=== PATIENT | male | born 1955 | race Hispanic/Latino ===

== ENCOUNTER → 2017-08-16 09:30 | Outpatient (CLI) | payer OTHER, SELFPAY ==
--- NOTE | 2017-08-16 | DI.US.S_ITS ---
PROCEDURE: US SCROTUM INDICATIONS: HYDROCELE TECHNIQUE: Real-time scanning was performed of the scrotum and testicles, with image documentation. Color and pulse Doppler interrogation was performed of both testicles. COMPARISON: [facility], US, TESTICLE IMAGING, 07/31/2011, 7:28. Formerly [facility], US, TESTICULAR & SCROTAL SONOGRAM, 08/02/2012, 15:13. FINDINGS: Right: Testicle is normal in size at 2.4 x 2.6 x 4.5 cm, and homogenous in echotexture. Small 5 mm x 5 mm x 3 mm testicular cyst anterior margin is unchanged. Epididymis is normal in overall size and morphology. No hydrocele or varicoceles. Overlying scrotal skin is normal in thickness. Left: Testicle is normal in size at 2.3 x 2.8 x 3.3 cm, and homogeneous in echotexture. Epididymis is normal in overall size and morphology. The loculated hydrocele measures 5.8 x 6.6 x 7.4 cm compared to 2.3 x 6.7 x 6.9 cm on last exam and 2.9 x 4.5 x 5.7 cm prior to that, no varicoceles. Overlying scrotal skin is normal in thickness. Doppler: Color and pulse Doppler demonstrate normal and symmetric arterial flow in both testicles. IMPRESSION: 1. Stable 5 mm right testicular cyst. 2. Loculated left hydrocele is slowly increasing in size. 3. Epididymal cysts on previous exams no longer evident. Dictated by: Salas Hudson M.D. on 08/16/2017 at 10:15 Approved by: Salas Hudson M.D. on 08/16/2017 at 10:22
== END ==
PROVIDERS: Visit Provider Physician Assistant
DX: N43.3 Hydrocele, unspecified (principal); N44.2 Benign cyst of testis
CPT/HCPCS: 76870

== ENCOUNTER → 2019-09-27 14:03 | Outpatient (CLI) | payer OTHER, SELFPAY ==
[2019-09-29 20:42] LABS: COVID19 Sendout Not Detected (Not Detect)
== END ==
PROVIDERS: PCP Neuromusculoskeletal Medicine & OMM; Visit Provider Physician Assistant
DX: Z11.59 Encounter for screening for other viral diseases (principal)
CPT/HCPCS: 87635

== ENCOUNTER 2019-09-30 08:35 | Day surgery (SDC) | payer OTHER, SELFPAY ==
[2019-09-30] VITALS (8 sets, daily range): BP systolic 121–149; BP diastolic 77–101; PULSE 91–109; RESP 11–20; TEMP 36.6–36.8; O2SAT 13–96; BMI 35.2
--- NOTE | 2019-09-30 | PATH_ITS ---
[facility] Accession Number: [id number] . 01 Material submitted: . PART A: colon - POLYP NEAR CECUM PART B: colon - 90 . 01 Clinical history: . SCREENING COLONOSCOPY . 02 Diagnosis: A. Colon Polyp, Near Cecum, Biopsy: Tubular adenoma. . B. Colon Polyp at 90 cm, Biopsy: Tubular adenoma. MRV 10/02/2019 1103 Local . 02 Electronically signed: . Emeterio Zhang MD, PhD, Pathologist NPI- [id number] . 01 Gross description: . Part A: POLYP NEAR CECUM: Received in formalin are multiple fragment(s) of felix, soft tissue measuring 1.0 x 0.7 x 0.4 cm in aggregate submitted entirely in 1 cassette(s) Part B: 90: Received in formalin is 1 fragment(s) of felix, soft tissue measuring 0.5 x 0.3 x 0.2 cm submitted entirely in 1 cassette(s) /QBJ 10/01/2019 0935 Local . 02 Pathologist provided ICD-10: D12.0, D12.6 . 02 CPT . 044999, 978570 Performed at: 01 [facility] [address] [facility], [place], [place] [id number] MD Dewayne John MD Phone: [phone] Performed at: 02 [facility] [address] [place], [place] [id number] MD Nidia Ashraf MD Phone: [phone]
--- NOTE | 2019-09-30 09:38 | PM.HP.1 ---
History of Present Illness History of Present Illness Date Patient Seen: 09/30/19 Time Patient Seen: 09:38 Chief complaint: SCREENING COLONOSCOPY Narrative: The patient is a gentleman his last exam was 5 years ago. He has a history of polyps. Patient History Medical History (Updated 09/30/19 @ 09:39 by Kian Coon MD) Arthritis (Acute) Diastasis recti (Acute) Graves disease (Acute) Sleep apnea (Acute) Family & Social History Family History (Updated 09/30/19 @ 09:40 by Kian Coon MD) Father Cancer Social History: household members spouse Tobacco & Substance use: Smoking Status Former smoker alcohol intake never Substance Use Type does not use Meds Home Medications and Allergies Home Medications Medication Instructions Recorded Confirmed Type levothyroxine [Synthroid] 150 mcg PO QDAY #0 tab 09/22/15 09/30/19 History triamterene-hydrochlorothiazid 1 cap PO QDAY #0 cap 09/22/15 09/30/19 History [Dyazide] ResMed AirCurve 10 BIPAP #1 ea 05/13/18 05/13/18 History cyclobenzaprine 10 mg PO TID PRN 09/30/19 09/30/19 History methotrexate sodium 12.5 mg PO BID 09/30/19 09/30/19 History sulfasalazine 1,000 mg PO BID 09/30/19 09/30/19 History Allergies Allergy/AdvReac Type Severity Reaction Status Date / Time No Known Drug Allergies Allergy Verified 09/30/19 08:54 Review of Systems Review of Systems Narrative: Patient is hypothyroid after radiation treatment for Graves disease ROS: Yes All systems reviewed with the patient and are negative except as otherwise documented Exam Vital Signs (past 8 hours): - 09/30/19 09:01 Temperature 97.9 F Pulse Rate 109 H Respiratory Rate 20 Blood Pressure 149/93 H Pulse Oximetry 96 Oxygen Delivery Method Room Air Narrative Exam Narrative: Pleasant cooperative patient no apparent distress. Lungs are clear to auscultation. No rales or rhonchi. Heart regular rate and rhythm no murmur gallop. Abdomen is soft nontender without mass. Obese. Diastasis recti No obvious hernias. Patient is alert and oriented x3. Assessment & Plan Assessment & Plan narrative: The patient for a screening colonoscopy. I have discussed the procedure with them. Risks of bleeding, perforation which would necessitate major operation, failure to find remove all lesions, the potential tattoo were all discussed. All questions were answered. They wished to proceed.
--- NOTE | 2019-09-30 09:42 | PM.PREOP ---
Pre-operative Note COVID-19 COVID-19 status: Negative Result date/Date tested (Pos, Neg/Pending): 09/27/19 Interval Note History & Physical reviewed/Exam performed by Physician: Yes Changes to H&P: No ASA Class (for procedural sedation): III
--- NOTE | 2019-09-30 10:13 | P.OP.ENDO_ITS ---
Operative Date/Time/Diagnoses Date of procedure: 09/30/19 Time of procedure: 10:14 Pre-op diagnosis: Screening examination. Personal history of polyps. Family history colon cancer. Last exam 5 years ago. Post-op diagnosis: same (Polyps) Procedure & Clinicians Study performed: Colonoscopy with hot snare polypectomy and cold biopsy Same procedure as scheduled: Yes Indications: Screening/patient with increase risk. Surgeon: Kian Coon Procedure Notes SCOAP/Timeout: Performed Procedure in detail: The patient was placed in the left lateral decubitus position and underwent IV sedation directed by the surgeon consisting of fentanyl and Versed. Digital exam was notable for enlargement of the prostate. There was a large external tag noted.. The scope was inserted and advanced through the rectum into the sigmoid, descending, transverse, and ascending colon. A small lesion was seen at about 90-100 cm which I attempted to biopsy. Unfortunately I loss side of it and could not relocated at this time.. The ce cum was reached identified by the ileocecal valve and the appendiceal opening. The ileocecal valve was successfully cannulated. The terminal ileum was normal in appearance. There was a large polyp in the region of the cecum which I snared with hot snare and removed completely. The base was cauterized. The scope was gradually brought out. One additional Polyp was found at 90 cm from the anal verge. I examined this region very carefully in this is the only lesion that I found. This was presumptively the lesion I saw going in.. The scope ultimately was retroflexed in the rectum. The appearance was remarkable for 1 large hemorrhoid. There were no ulcerations on it.. The scope was removed and the patient tolerated the procedure well. Prep was excellent. Scope withdrawal time: 10 minutes(12 total) Sedation minutes: 22 Findings: polyp Specimen(s): other (Polyps) Complications: none Post-procedure Recommendations: Colonscopy in 5 years Follow up: as needed Disposition: PACU
[2019-09-30] MEDS: fentaNYL 250 MCG/5 ML INJ IV (10:16)
[2019-09-30] MEDS: MIDAZOLAM 5 MG/5 ML VIAL IV (10:16)
== END 2019-09-30 11:12 | disposition home or self-care (01) ==
PROVIDERS: PCP Neuromusculoskeletal Medicine & OMM; Referring Provider Specialist; Visit Provider Specialist
PROC: 0DJD8ZZ Inspection of Lower Intestinal Tract, Via Natural or Artificial Opening Endoscopic (ICD-10-PCS; CPT 45378; principal; 2019-09-30 09:45)
DX: Z12.11 Encounter for screening for malignant neoplasm of colon (principal); Z86.010 Personal history of colon polyps; Z80.0 Family history of malignant neoplasm of digestive organs; K64.9 Unspecified hemorrhoids; D12.0 Benign neoplasm of cecum; D12.6 Benign neoplasm of colon, unspecified
CPT/HCPCS: 45385; 45380; 99152; J2250; J3010

== ENCOUNTER → 2021-02-04 13:44 | Outpatient (CLI) | payer OTHER, SELFPAY ==
[2021-02-04 14:09] LABS: COVID19 -Nasal RAPID Negative (Negative)
== END ==
PROVIDERS: PCP Neuromusculoskeletal Medicine & OMM; Visit Provider Specialist
DX: Z20.822 Contact with and (suspected) exposure to COVID-19 (principal)
CPT/HCPCS: 87635; C9803

== ENCOUNTER 2021-02-07 08:44 | Day surgery (SDC) | payer OTHER, SELFPAY ==
[2021-02-07] VITALS (7 sets, daily range): BP systolic 121–154; BP diastolic 76–100; PULSE 81–97; RESP 9–16; TEMP 36.6–37; O2SAT 89–95; BMI 32.1
--- NOTE | 2021-02-07 | PATH_ITS ---
[facility] Accession Number: [id number] . 01 Material submitted: . body - LEFT SPERMATOCELE . 01 Clinical history: . LEFT SPERMATOCELECTOMY . 02 Diagnosis: A. Left Spermatocele, Excision: Benign epithelial-lined cyst (spermatocele-clinical). [facility] 02/09/2021 1518 Local . 02 Electronically signed: . Malaika Nice MD, Pathologist NPI- [id number] . 01 Gross description: . The specimen is received in formalin, labeled left spermatocele and consists of a 5.0 x 1.5 x 1.0 cm felix-pink membranous fragment of soft tissue which is inked blue and sectioned to reveal a felix-pink wrinkled inner lining. Hand Box Folder sections are submitted in cassette A1. ([id number]) /MRV 02/08/2021 1028 Local . 02 Pathologist provided ICD-10: N50.3 . 02 CPT . 383278 Performed at: 01 [facility] [address] [facility], [place], [place] [id number] MD Dewayne John MD Phone: [phone] Performed at: 02 [facility] [address] [place], [place] [id number] MD Nidia Ashraf MD Phone: [phone]
[2021-02-07] MEDS: LACTATED RINGERS 1,000 ML 42 ML IV ×2 (09:30→12:20)
--- NOTE | 2021-02-07 10:17 | PM.PREOP ---
Pre-operative Note Interval Note History & Physical reviewed/Exam performed by Physician: Yes Changes to H&P: No
[2021-02-07] MEDS: CEFAZOLIN 2 GM/20 ML SYRINGE IV (11:10)
[2021-02-07] MEDS: BUPIVACAINE LIPOSOME 266 MG/20 ML VIAL INJ (11:14)
[2021-02-07] MEDS: BUPIVACAINE 0.25% (PF) 30 ML, EPINEPHrine 0.15 MG INJ (11:18)
--- NOTE | 2021-02-07 11:22 | SUR.OPER ---
Supine on padded OR bed, head on pillow, arms secured on padded arm boards at <90 degrees abduction, legs uncrossed, safety belt at thigh, tape over blanket over lower legs.
[2021-02-07] MEDS: BACITRACIN OINT 0.9 GM PCKT 1 APPLIC TOP (12:20)
--- NOTE | 2021-02-07 12:54 | P.OP_ITS ---
Operative Date/Time/Diagnoses Date of procedure: 02/07/21 Time of procedure: 12:54 Pre-op diagnosis: Left spermatocele Post-op diagnosis: same Procedure & Clinicians Procedure: Left spermatocelectomy. Same procedure as scheduled: Yes Indications: 1. Left spermatoceles. 2. Pain. Surgeon: J Luis Scott Click Yes if Unassisted: Yes Anesthesia Type: General and Local (1.33% Exparel) Operative Notes Findings: Multiple, variably sized epididymal cysts measuring 4 mm to 4 cm. Displacement of epididymis due to mass effect from multiple Closure Type: primary Specimen(s): other (Spermatocele sacs) Applied: other (10 [place] fenestrated Alberto drain.) Estimated Blood Loss (mL): 2 Blood products transfused: none Procedure in detail: The patient was positioned supine was administered general anesthesia. The lower abdomen, genitalia, and groin were then prepped and draped in sterile fashion. A solution of 0.5% Marcaine with epinephrine was then used to infiltrate the skin and subcutaneous tissue with the midline scrotal raphae. Incision was then made in the midline and taken down to the level of the tunica vaginalis the left hemiscrotum. This was then entered and further dense attachments to the testis, epididymis and distal cord were then carefully taken down using blunt, sharp, and cautery dissection. Meticulous dissection was then undertaken to separate the multiple and variably sized cystic structures from the posterior aspect of the testis and the displaced epididymis. Hemostasis was excellent. Cystic sacs were submitted to pathology for routine gross and microscopic examination. There is no suspicious findings. The cord and testis were then repositioned left hemiscrotum anatomically. A solution of 0.5% Marcaine and epinephrine was then used to infiltrate the left inferior lateral scrotal wall. A 10 [place] fenestrated Alberto drain was then positioned in trimmed to appropriate length within the left hemiscrotum. It was secured to this level of the skin with a 2-0 silk suture using a Laurent sandals technique. The midline dartos fascia and musculature was then reapproximated with a running vertical mattress of 2-0 Monocryl. The skin was then reapproximated with a running horizontal mattress of 4-0 Monocryl. The skin was then cleaned and dried and antibiotic ointment was then applied to the incision and drain site before application of multiple dry sterile fluffs. An athletic supporter was then fitted to the patient. The patient was then awakened, transferred to a gurney, and transferred recovery in stable condition. Complications: none Post-operative Condition: stable Disposition: PACU Plan for aftercare: Discharge home.
[2021-02-07] MEDS: ACETAMINOPHEN 325 MG TABLET 650 MG PO (13:27)
[2021-02-07] MEDS: OXYCODONE IR 5 MG TABLET PO (13:28)
--- NOTE | 2021-02-07 14:19 | SUR.PHASEII ---
Assumed care from Marie. D/C instructions discussed with pt , then daughter at the car. Both voiced an understanding. NASRIN drain supplies per Dr. Scott's instructions given to pt with explanation, NASRIN drain emptied, pt voiced an understanding as well as daughter. Dr. Scott also spent time with daughter on phone discussing d/c instruction. Pt aware to call his office for f/u appt and to report drain output. Pt up to BR prior to d/c and voided, pt dressed with assist and left unit stable condition.
== END 2021-02-07 14:10 | disposition home or self-care (01) ==
PROVIDERS: PCP Neuromusculoskeletal Medicine & OMM; Referring Provider Specialist; Visit Provider Specialist
PROC: (CPT 54840; principal; 2021-02-07 10:15)
DX: N43.42 Spermatocele of epididymis, multiple (principal)
CPT/HCPCS: 54840; C9290; J0171; J0690; J2405; J2704; J3010